=== PATIENT | male | born 1955 | race Caucasian/White ===

== ENCOUNTER 2021-01-13 13:37 | Emergency (ER) | payer MEDICARE, OTHER ==
[~2021-01-13] VITALS: Ht 182.9 cm; Wt 79.5 kg
[2021-01-13 13:47] VITALS: BP 155/88
[2021-01-13] MEDS ORDERED: HYDROcodone/acetaminophen 5mg/325mg tablet PO ONE (16:35)
== END 2021-01-13 16:44 | disposition home or self-care (01) ==
LOC: ER 13:37
DX: M25.551 Pain in right hip (principal); Z98.890 Other specified postprocedural states; Z88.0 Allergy status to penicillin
CPT/HCPCS: 72192; 73502; 99284

== ENCOUNTER 2021-05-28 17:03 | Emergency (ER) | payer MEDICARE ==
[~2021-05-28] VITALS: Ht 182.9 cm; Wt 81.8 kg
[2021-05-28] MEDS ORDERED: normal saline 1000ML IV soln IVB ONE (21:35)
[2021-05-28] MEDS ORDERED: HYDROmorphone 1 mg/ml syringe IM ONE (21:35)
[2021-05-28] MEDS ORDERED: proCHLORperazine 10 MG/2 ml inj IV ONE (21:35)
[2021-05-28] MEDS ORDERED: ketorolac tromethamine 15mg/ml inj. IV ONE (21:35)
[2021-05-28] MEDS ORDERED: propofol 10mg/ml 20ml vial IV ONE (21:40)
[2021-05-28] MEDS ORDERED: HYDROcodone/acetaminophen 5mg/325mg tablet PO ONE (22:35)
[2021-05-28] MEDS ORDERED: naproxen 500mg tablet PO ONE (22:35)
[2021-05-28] MEDS ORDERED: HYDR-3965 PO (22:36)
--- NOTE | 2021-05-28 22:37 | NUR ---
PT SEEN BY DR. CHAND AFTER RESULTS CAME BACK FROM RADIOLOGY AND CONCLUDED NO LONGER NEEDS SEDATION FOR REDUCTION. PT STATES SHORTENING AND ROTATION IS NORMAL FOR HIM. THIS WAS COMMUNICATED TO DR. CHAND.
[2021-05-28 23:34] VITALS: BP 125/66
== END 2021-05-28 23:37 | disposition home or self-care (01) ==
LOC: ER 17:03
DX: M25.551 Pain in right hip (principal); Z96.641 Presence of right artificial hip joint; Z59.0 Homelessness; Z88.0 Allergy status to penicillin; Z79.899 Other long term (current) drug therapy
CPT/HCPCS: 73502; 93005; 96361; 96372; 96374; 96375; 99284; J0780; J1170; J1885; J7030

== ENCOUNTER 2021-06-17 15:17 | Emergency (ER) | payer MEDICARE ==
[~2021-06-17] VITALS: Ht 182.9 cm; Wt 77.3 kg
[~2021-06-17 15:17] MED LIST: HYDR-3965 PO
[2021-06-17] MEDS ORDERED: ketorolac trometh. 30mg/ml inj. IM ONE (19:05)
[2021-06-17 19:15] VITALS: BP 130/82
== END 2021-06-17 19:17 | disposition home or self-care (01) ==
LOC: ER 15:18
DX: M25.551 Pain in right hip (principal); Z96.641 Presence of right artificial hip joint; Z88.0 Allergy status to penicillin; Z79.899 Other long term (current) drug therapy
CPT/HCPCS: 73502; 96372; 99283; J1885

== ENCOUNTER 2021-06-24 21:32 | Emergency (ER) | payer MEDICARE ==
[~2021-06-24] VITALS: Ht 182.9 cm; Wt 81.8 kg
[2021-06-24 21:38] VITALS: BP 158/92
[2021-06-24] MEDS ORDERED: CRUT1EAC36 (22:45)
== END 2021-06-24 23:01 | disposition home or self-care (01) ==
LOC: ER 21:32
DX: G89.29 Other chronic pain (principal); M25.551 Pain in right hip; R46.0 Very low level of personal hygiene; Z96.641 Presence of right artificial hip joint; Z98.890 Other specified postprocedural states; Z88.0 Allergy status to penicillin; Z79.899 Other long term (current) drug therapy
CPT/HCPCS: 73502; 99283

== ENCOUNTER 2022-01-24 14:51 | Emergency (ER) | payer MEDICARE, MEDICAID ==
[~2022-01-24] VITALS: Ht 182.9 cm; Wt 77.3 kg
[~2022-01-24 14:51] MED LIST changes: +CRUT1EAC36; -HYDR-3965 PO
[2022-01-24 15:18] LABS: BASOPHILS % (AUTO) 0.6 % (0-1); EOSINOPHILS # (AUTO) 0.1 X10'3 (0-0.9); EOSINOPHILS % (AUTO) 1.7 % (0-6); HEMATOCRIT 45.3 % (42.0-52.0); HEMOGLOBIN 15.2 g/dl (14.0-17.9); LYMPHOCYTES # (AUTO) 2.2 X10'3 (1.1-4.8); LYMPHOCYTES % (AUTO) 32.9 % (21-51); MEAN CORPUSCULAR HEMOGLOBIN 28.1 PG (27.0-31.0); MEAN CORPUSCULAR HGB CONC 33.5 g/dL (33.0-36.5); MEAN CORPUSCULAR VOLUME 83.8 FL (78-98); MEAN PLATELET VOLUME 7.7 FL (7.4-10.4); MONOCYTES # (AUTO) 0.8 X10'3 (0-0.9); MONOCYTES % (AUTO) 12.1 % (2-12); NEUTROPHILS # (AUTO) 3.5 X10'3 (1.8-7.7); NEUTROPHILS % (AUTO) 52.7 % (42-75); PLATELET COUNT 318 X10'3 (140-440); RED CELL DISTRIBUTION WIDTH 14.4 % (11.5-14.5); WHITE BLOOD COUNT 6.7 X10'3 (4.5-11.0)
--- NOTE | 2022-01-24 15:20 | NUR ---
PT INSIST ON CLEANING HIMSELF OF STOOL INCONTINENCE
[2022-01-24 15:35] LABS: ALANINE AMINOTRANSFERASE 28 U/L (12-78); ALBUMIN 3.9 G/DL (3.4-5.0); ALBUMIN/GLOBULIN RATIO 0.8 (1.1-1.5); ALKALINE PHOSPHATASE 152 IU/L (46-116); ANION GAP 11 (8-16); ASPARTATE AMINO TRANSFERASE 25 U/L (10-37); BLOOD UREA NITROGEN 14 MG/DL (7-18); BUN/CREATININE RATIO 17.1 (5.4-32.0); CALCIUM 9.1 MG/DL (8.5-10.1); CHLORIDE 102 MMOL/L (99-107); CREATININE 0.82 MG/DL (0.60-1.10); ETHANOL < 0.010 GM/DL (0.0-0.010); POTASSIUM 3.5 MMOL/L (3.5-5.1); SODIUM 140 MMOL/L (135-145); TOTAL CARBON DIOXIDE 27.1 MMOL/L (24-32); TOTAL PROTEIN 8.5 G/DL (6.4-8.2); eGFR > 90 ML/MIN
[2022-01-24 16:09] LABS: GLUCOSE 108 MG/DL (70-104)
[2022-01-24 16:14] LABS: CLARITY,URINE CLOUDY (Clear); GLUCOSE, URINE NEGATIVE (Neg); KETONES,URINE NEGATIVE (Neg); LEUKOCYTE ESTERASE ,URINE MODERATE (Neg); NITRITES, URINE NEGATIVE (Neg); OCCULT BLOOD,URINE LARGE (Neg); PROTEIN,URINE 100 mg/dl (Neg)
[2022-01-24 16:24] LABS: URINE AMPHETAMINE SCREEN NEGATIVE (Neg); URINE BARBITUATE SCREEN NEGATIVE (Neg); URINE BENZODIAZEPINES SCREEN NEGATIVE (Neg); URINE CANNABINOID SCREEN POSITIVE (Neg); URINE COCAINE SCREEN NEGATIVE (Neg); URINE METHADONE SCREEN NEGATIVE (Neg); URINE OPIATE SCREEN NEGATIVE (Neg); URINE PHENCYCLIDINE SCREEN NEGATIVE (Neg)
[2022-01-24 16:27] LABS: COLOR,URINE AMBER (Yellow); UA COLLECTION TYPE NON-SPECIFIED
[2022-01-24 16:28] LABS: RBC,URINE TNTC /HPF (0-2)
[2022-01-24 16:29] LABS: BACTERIA,URINE 1+ /HPF (Neg)
[2022-01-24 16:30] LABS: SQUAMOUS EPITHELIAL CELL,UR FEW /LPF (FEW)
[2022-01-24] MEDS ORDERED: morphine 4 MG/ML inj SYRINge IM ONE (19:00)
[2022-01-24] MEDS ORDERED: ondansetron 4mg rapidly disintigrating tab PO ONE (19:00)
[2022-01-24] MEDS: cephalexin 500mg capsule PO SCH (19:07)
[2022-01-24] MEDS ORDERED: cephalexin 500mg capsule PO ONE (20:00)
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
[2022-01-24] MEDS: HYDROcodone/acetaminophen 5mg/325mg tablet PO PRN (23:11)
--- NOTE | 2022-01-24 23:16 | NUR ---
Pt asking for pain meds (05/16) on right hip. [place] 5mg given per providers order.
--- NOTE | 2022-01-24 23:50 | NUR ---
Packet faxed to [facility].
--- NOTE | 2022-01-25 02:03 | NUR ---
Pt appears to be sleeping.
[2022-01-25 05:11] VITALS: BP 125/84
--- NOTE | 2022-01-25 05:20 | NUR ---
Pt appears to be sleeping.
--- NOTE | 2022-01-25 07:00 | NUR ---
Pt is requesting coffee. Coffee provided
[2022-01-25] MEDS: cephalexin 500mg capsule PO SCH (07:42)
[2022-01-25] MEDS: HYDROcodone/acetaminophen 5mg/325mg tablet PO PRN (07:43)
--- NOTE | 2022-01-25 08:20 | NUR ---
Pt is being evaluated by .
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
[2022-01-25] MEDS ORDERED: CEPH-585 PO ×3 (10:09→10:21)
--- NOTE | 2022-01-25 10:30 | NUR ---
This nurse called the [facility] after pt shared that the last time he was sent there they turned him down. This nurse spoke to a gentleman named Kenny and a lady named Ying. Both agreed he could stay there after reviewing a "guest" list. Pt is happy to go.
--- NOTE | 2022-01-25 10:45 | NUR ---
[facility] once he got there to tell this nurse he had been denied services. Spoke to a person in [employer], who would not allow him to stay there.
== END 2022-01-25 10:45 | disposition home or self-care (01) ==
LOC: ER 14:51
DX: F79 Unspecified intellectual disabilities (principal); Z20.822 Contact with and (suspected) exposure to COVID-19; N39.0 Urinary tract infection, site not specified; Z98.890 Other specified postprocedural states; Z88.0 Allergy status to penicillin; Z79.2 Long term (current) use of antibiotics
CPT/HCPCS: 36415; 72170; 80053; 80305; 80320; 81001; 85025; 87635; 96372; 99285; C9803; J2270